=== PATIENT | male | born 1970 | race Caucasian/White ===

== ENCOUNTER 2023-06-22 16:08 | Emergency (ER) | payer OTHER, BC ==
[2023-06-22] MEDS ORDERED: Ibuprofen 800 MG Tab PO ONE (18:27)
[2023-06-22] MEDS ORDERED: Acetaminophen 325 MG Tab PO ONE (18:27)
== END 2023-06-22 19:02 | disposition home or self-care (01) ==
LOC: JD.ED 16:08
DX: S43.101A Unspecified dislocation of right acromioclavicular joint, initial encounter (principal); V19.9XXA Pedal cyclist (driver) (passenger) injured in unspecified traffic accident, initial encounter
CPT/HCPCS: 73030; 99283; A9270